=== PATIENT | male | born 1975 | race Caucasian/White ===

== ENCOUNTER 2017-11-23 12:38 | Outpatient (CLI) | payer OTHER ==
[~2017-11-23 12:38] MED LIST: AVANDARYL 4 MG-1 TA1 PO; IBUPROFEN800 MG PO; METFORMIN HCL1000 MG PO; MICARDIS HCT1 UDTA1 PO; NABUMETONE500 MG PO; ORPH100T PO; PERCOCET 5/3251 TAB PO
== END 2017-11-23 16:40 | disposition home or self-care (01) ==
LOC: LAB 12:38
DX: G47.33 Obstructive sleep apnea (adult) (pediatric) (principal)

== ENCOUNTER 2018-06-04 11:04 | Emergency (ER) | payer OTHER ==
[~2018-06-04] VITALS: Ht 177.8 cm; Wt 88.9 kg
== END 2018-06-04 14:44 | disposition home or self-care (01) ==
LOC: ER 11:04
DX: K62.89 Other specified diseases of anus and rectum (principal)

== ENCOUNTER 2019-05-01 09:14 | Emergency (ER) | payer OTHER ==
[~2019-05-01] VITALS: Ht 177.8 cm; Wt 89.4 kg
== END 2019-05-01 10:30 | disposition home or self-care (01) ==
LOC: ER 09:14
DX: S76.812A Strain of other specified muscles, fascia and tendons at thigh level, left thigh, initial encounter (principal); X58.XXXA Exposure to other specified factors, initial encounter; Y93.89 Activity, other specified; Y92.89 Other specified places as the place of occurrence of the external cause; Y99.8 Other external cause status

== ENCOUNTER → 2020-10-12 10:39 | Outpatient (CLI) | payer OTHER | END | disposition home or self-care (01) | LOC: LAB 10:39 | PROVIDERS: ATTEND General Practice | DX: I11.9 Hypertensive heart disease without heart failure (principal); N39.0 Urinary tract infection, site not specified; E55.9 Vitamin D deficiency, unspecified; I10 Essential (primary) hypertension ==

== ENCOUNTER 2021-05-17 09:59 | Outpatient (CLI) | payer OTHER | END 2021-05-17 15:00 | disposition home or self-care (01) | LOC: LAB 09:59 | DX: E03.8 Other specified hypothyroidism (principal); Z13.1 Encounter for screening for diabetes mellitus; N40.0 Benign prostatic hyperplasia without lower urinary tract symptoms; E29.1 Testicular hypofunction ==

== ENCOUNTER 2021-11-20 08:17 | Outpatient (CLI) | payer OTHER | END 2021-11-20 08:21 | disposition home or self-care (01) | LOC: LAB 08:17 | PROVIDERS: ATTEND Internal Medicine Cardiovascular Disease | DX: J44.9 Chronic obstructive pulmonary disease, unspecified (principal); I10 Essential (primary) hypertension; E11.9 Type 2 diabetes mellitus without complications; E03.9 Hypothyroidism, unspecified; E78.2 Mixed hyperlipidemia; N40.0 Benign prostatic hyperplasia without lower urinary tract symptoms; E55.9 Vitamin D deficiency, unspecified ==